=== PATIENT | female | born 1955 | race African-American/Black ===

== ENCOUNTER 2016-12-27 21:54 | Observation (INO) ==
--- NOTE | 2016-12-27 22:55 | Emergency Department Note ---
Sandra Naik Emily, am scribing for, and in the presence of, Bridgett Jovel DO 22:33. IMed Debra, DO, personally performed the services described in this documentation, ascribed by Jennifer Flores in my presence, and it is both accurate and complete . Arrival - Arrival Chief Complaint: Non-Specific Stated Complaint: sbo ED Nursing Triage Note: TRANSFER FROM [facility] WITH SMALL BOWEL OBSTRUCTION. PATIENT STATES SHE DEVELOPED N/V TODAY AND WENT IN TO BE SEEN. Mode of Arrival: Stretcher Limitations: No Limitations Source: Patient - History of Present Illness HPI Narrative: Pt is a 61 y/o female who was transferred from [facility] for further evaluation SBO. sent CT abd/pelvis report in which shows small obstruction related to a left pelvic spigelian hernia with concern for strangulation and no perforation. Her WBC was 16.3 and RBC of 5.0 at . Pt c/o abdomen pain with N /V that has been ongoing for 3 days now. Pt notes coming from family's graduation ceremony and constantly stopping on side of road with emesis. Onset (ago): day(s) Consistency: constant Severity: moderate, severe Severity scale (1-10): 9 Quality: aching, fullness Allergies/Adverse Reactions: Allergies Allergy/AdvReac Type Severity Reaction Status Date / Time codeine AdvReac Vomiting Verified 12/25/16 16:54 Home Medications: Home Medications Medication Instructions Recorded Confirmed Type Ciprofloxacin Tab [Cipro Tab] 500 mg PO BID #20 tablet 12/25/16 Rx Ondansetron Tab [Zofran Tab] 4 mg PO Q6H PRN #20 tablet 12/25/16 Rx Review of System - Review of System 12 point system: reviewed and no additional remarkable complaints except as stated - Review of System Constitutional: Absent: chills, fever Respiratory: Absent: respiratory distress Cardiovascular: Absent: chest pain Gastrointestinal: Present: abdominal pain, nausea, vomiting Genitourinary female: Absent: dysuria Musculoskeletal: Absent: arm pain, back pain, leg pain, neck pain Skin: Absent: rash Neurological: Absent: headache, confusion Medical,Surgical,& Family Hx - Medical History Cardio: History of: Hypertension Endocrine: History of: Diabetes Mellitus (NIDDM), Dyslipidemia - Social History Smoking Status: Never smoker Frequency of Alcohol Use: None Type of Drug Use: None Exam Vital Signs: Vital Signs Temperature 97.8 F 12/27/16 21:54 Pulse Rate 62 12/27/16 21:54 Respiratory Rate 14 12/27/16 21:54 Blood Pressure 135/67 12/27/16 21:54 O2 Sat by Pulse Oximetry 99 12/27/16 21:54 - General General appearance: alert, in no apparent distress - Head Head exam: Present: atraumatic, normocephalic - Eye Eye exam: Present: PERRL, EOMI - ENT ENT exam: Present: mucous membranes moist. Absent: mucous membranes dry - Neck Neck exam: Present: full ROM. Absent: tenderness - Chest Chest inspection: Present: symmetric chest wall rise. Absent: tenderness - Respiratory Respiratory exam: Present: normal lung sounds bilaterally. Absent: respiratory distress - Cardiovascular Cardiovascular exam: Present: regular rate, normal rhythm, normal heart sounds - Abdominal Exam Abdominal exam: Present: soft, tenderness (diffusely), diminished bowel sounds. Absent: distention, guarding, rebound, normal bowel sounds - Extremities Exam Extremities exam: Present: full ROM. Absent: tenderness, pedal edema - Neurological Exam Neurological exam: Present: alert, oriented X3, CN II-XII intact. Absent: motor sensory deficit - Psychiatric Psychiatric exam: Present: normal affect, normal mood - Skin Skin exam: Present: warm, dry Course Course Narrative: spoke with Dr Talbert who will take pt to the OR Disposition Clinical Impression: Spigelian hernia with bowel obstruction Case discussed with: patient Disposition: Still a Patient Condition: Stable Time of Disposition: 23:14
--- NOTE | 2016-12-27 22:58 | General Surg History&Physical ---
Assessment and Plan - Time spent with patient Time spent with patient: Less than 30 minutes (1) Spigelian hernia with bowel obstruction Status: Acute Assessment and plan: The mass is tender and at risk for bowel compromise or gangrene. I discussed emergent laparotomy with repair of the spigelian hernia. We may be able to do this locally through the left lower quadrant incision but this may require a more complex procedure. She is rather obese so it is very difficult to definitely palpate where the mass is located. The procedure and risks were outlined in detail with the patient and she wishes to proceed Current Visit: Yes History of Present Illness Chief complaint: Abdominal pain History of present illness: Ms. Ludwig is a 61 year old female With a 3 day history of left lower quadrant abdominal pain followed by abdominal distention and nausea and vomiting. The pain was intermittent but is now more constant. The pain is mostly localized to the left lower quadrant. It feels a little better if she lays still and is worse with movement. She has not had a bowel movement in several days. She had a CT scan at [facility] showing an incarcerated spigelian hernia with bowel obstruction associated with it Home Medications Medication Instructions Recorded Confirmed Type Ciprofloxacin Tab [Cipro Tab] 500 mg PO BID #20 tablet 12/25/16 Rx Ondansetron Tab [Zofran Tab] 4 mg PO Q6H PRN #20 tablet 12/25/16 Rx Allergies Allergy/AdvReac Type Severity Reaction Status Date / Time codeine AdvReac Vomiting Verified 12/25/16 16:54 Medical,Surgical,& Family Hx - Medical History Cardio: History of: Hypertension Endocrine: History of: Diabetes Mellitus (NIDDM), Dyslipidemia - Surgical History Surgical History: noncontributory - Family History Family History: noncontributory - Social History Smoking Status: Never smoker Frequency of Alcohol Use: None Type of Drug Use: None Exam - Constitutional Vitals: Period Temp Pulse Resp BP Sys/Garcia Pulse Ox Last 24 Hr 97.8 F 62 14 135/67 99 General appearance: no acute distress, over weight - Head Head exam: Present: normocephalic - Eye Eye exam: Absent: scleral icterus - ENT Mouth exam: Present: normal voice - Neck Neck exam: Present: trachea midline. Absent: tenderness - Respiratory Respiratory exam: Present: clear to auscultation bilaterally. Absent: accessory muscle use - Cardiovascular Cardiovascular exam: Present: RRR - GI/Abdominal GI/Abdominal exam: Present: distended, hypoactive bowel sounds, mass, tenderness , soft. Absent: guarding, rebound - Back Exam Back exam: Absent: CVA tenderness (L), CVA tenderness (R) - Neurological Exam Neurological exam: Present: alert, oriented X3. Absent: motor sensory deficit Speech: Present: normal - Skin Skin exam: Present: normal color - Constitutional Constitutional: Absent: chills, fever(s), weight loss - EENT Nose, mouth and throat: Absent: hoarseness - Cardiovascular Cardiovascular: Absent: chest pain at rest, chest pain with activity, dyspnea, dyspnea on exertion, syncope - Respiratory Respiratory: Absent: dyspnea, hemoptysis, dyspnea on exertion - Gastrointestinal Gastrointestinal: Present: abdominal pain, bloating, cramping, nausea, vomiting. Absent: hematemesis, hematochezia, melena, jaundice - Genitourinary Genitourinary: Absent: hematuria - Musculoskeletal Musculoskeletal: Absent: back pain - Endocrine Endocrine: Absent: polyuria Hematologic/Lymphatic: Absent: easy bleeding, easy bruising Results - Diagnostic Findings Procedure: CT Abdomen and Pelvis: report reviewed by me
[2016-12-27] MEDS ORDERED: ceFAZolin 1,000 MG VIAL ONE (23:05)
[2016-12-27] MEDS ORDERED: BUPIVACAINE MPF 0.25% /EPI 30 ML VIAL ONE (23:05)
[2016-12-27] MEDS ORDERED: FAMOTIDINE 20 MG/2 ML VIAL IV ONE (23:16)
[2016-12-27] MEDS ORDERED: FAMOTIDINE 20 MG/2 ML VIAL IV STA (23:18)
[2016-12-27] MEDS ORDERED: LIDOCAINE 2% 5 ML VIAL ONE (23:30)
[2016-12-27] MEDS ORDERED: PHENYLEPHRINE 1 MG/10 ML SYRINGE IV ONE (23:30)
[2016-12-27] MEDS ORDERED: KETOROLAC 30 MG/1 ML VIAL ONE (23:30)
[2016-12-27] MEDS ORDERED: ONDANSETRON 4 MG/2 ML VIAL ONE (23:30)
[2016-12-27] MEDS ORDERED: GLYCOPYRROLATE 0.4 MG/2 ML VIAL ONE (23:30)
[2016-12-27] MEDS ORDERED: NEOSTIGMINE 10 MG/10 ML VIAL ONE (23:30)
[2016-12-27] MEDS ORDERED: CITRIC ACID/SODIUM CITRATE 30 ML UDCUP PO ONE (23:30)
[2016-12-27] MEDS ORDERED: DEXAMETHASONE 10 MG/1 ML VIAL ONE (23:30)
[2016-12-27] MEDS ORDERED: ROCURONIUM 100 MG/10 ML VIAL IV ONE (23:30)
[2016-12-27] MEDS ORDERED: SUCCINYLCHOLINE 200 MG/10 ML VIAL ONE (23:30)
[2016-12-27] MEDS ORDERED: PROPOFOL 200 MG/20 ML VIAL IV ONE (23:30)
[2016-12-28] MEDS ORDERED: MORPHINE 2 MG/1 ML SYRINGE IV PRN (00:35)
[2016-12-28] MEDS ORDERED: GLUCAGON 1 MG VIAL IM PRN (00:35)
[2016-12-28] MEDS ORDERED: DEXTROSE 50% 25 GM/50 ML VIAL IV PRN (00:35)
[2016-12-28] MEDS ORDERED: ONDANSETRON 4 MG/2 ML VIAL IV PRN (00:35)
--- NOTE | 2016-12-28 00:35 | Operative Note ---
Date of procedure: 12/28/16 Pre-op diagnosis: Small bowel obstruction Post-op diagnosis: other (Incarcerated spigelian hernia) Procedure: Laparotomy with reduction of incarcerated spigelian hernia 2. Repair of spigelian hernia with preperitoneal polypropylene mesh Findings and technique: After informed consent was obtained the patient was brought the operating room and placed in supine position. After successful induction of general anesthesia the patient's abdomen was prepped and draped in usual sterile fashion. A small transverse incision was made over the palpable mass in the left lower quadrant. Sharp dissection was carried down to the hernia sac. Sac was opened and the bowel exposed. The bowel appeared congested but did not appear gangrenous. I could not reduce the bowel or the incarcerated fat which appeared to mostly be. Preperitoneal fat back into the abdominal cavity. After attempts to manually reduce this were unsuccessful I had to make a small lower midline incision and then was able to reduce the bowel out of the hernia sac into the abdominal cavity the bowel was inspected and was felt to be completely viable. I saw no evidence of gangrene or bowel compromise. This relieve the bowel obstruction. I then did a preperitoneal dissection from the midline over to the location of the hernia and dissected well lateral to the hernia. This created a nice space to lay flat piece of pro- envelope fold operator polypropylene mesh. This was trimmed to fit about 5 x 10 cm in size in an oval shape and this was secured in place with a couple of Prolene sutures to prevent any mesh migration. The peritoneum was then closed isolating the mesh from the abdominal cavity. The midline fascia was then closed with a running # 1 PDS suture. The fascial and muscle layers were then closed with interrupted Prolene suture at the hernia site covering the mesh and the wounds closed with skin clips. She appeared to tolerate the procedure well and she did receive perioperative IV antibiotics. Anesthesia: GETA Surgeon / Physician: Marcus Hadley III. Estimated blood loss: minimal Specimens: none sent Condition: stable Disposition: PACU Discharge Plan - Discharge Data Disposition: Still a Patient - Discharge Medications No Action Ondansetron Tab [Zofran Tab] 4 mg PO Q6H PRN #20 tablet PRN Reason: Nausea/Vomiting Ciprofloxacin Tab [Cipro Tab] 500 mg PO BID #20 tablet - Follow Up or Referral - Forms/Instructions
[2016-12-28 00:38] LABS: Apearance,Urine Slightly Hazy (Clear); Bilirubin,Urine Negative (Negative); Blood, Urine Negative (Negative); Glucose,Urine (UA) Negative (Negative); Ketones,Urine 5 mg/dL (Negative); Mucus,Urine Occasional /LPF (Occasional); Nitrite,Urine Negative (Negative); Protein,Urine Negative; RBC,Urine 1 /HPF (0-4); Urine Color Yellow (Yellow); Urine Specific Gravity 1.015 (1.001-1.035); Urine Urobilinogen < 2.0 EU/DL (0.2-1.0); WBC,Urine 1 /HPF (0-6)
--- NOTE | 2016-12-28 00:52 | Anesthesia Post-Op ---
Anesthesia Post OP - Post Ansesthetic Evaluation Patient seen in post op: Yes Resp: within normal limits CV: within normal limits Mental: within normal limits Temp: within normal limits Cbct-Mh-Divimbjmr: within normal limits Nausea and Vomiting: within normal limits Pain: within normal limits
[2016-12-28] MEDS ORDERED: SEVOFLURANE 1 UNIT/15 MINUTE INH ONE (00:53)
[2016-12-28] MEDS ORDERED: fentaNYL 100 MCG/2 ML VIAL ONE (00:54)
[2016-12-28] MEDS ORDERED: LACTATED RINGERS 2,000 ML IV ONE (00:54)
[2016-12-28] MEDS ORDERED: MIDAZOLAM 2 MG/2 ML VIAL ONE (00:54)
[2016-12-28] MEDS ORDERED: ACETAMINOPHEN 1,000 MG/100 ML VIAL IV ONE (00:54)
[2016-12-28] MEDS: SODIUM CHLORIDE 0.45% 1,000 ML IV SCH ×3 (04:33→23:02)
[2016-12-28] MEDS: ceFAZolin 2,000 MG in PREMIX 1 EACH IV SCH ×2 (08:34→16:25)
--- NOTE | 2016-12-28 09:34 | Event Note ---
She feels much better. She has not had nausea or vomiting but has not had any appetite. Her vital signs are stable. Her abdomen is benign. Her urine output is adequate. We will get her Moreno catheter out. We will get her up out of bed.
--- NOTE | 2016-12-28 10:17 | EKG Report ---
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
--- NOTE | 2016-12-28 10:30 | Hospitalist Consult Note ---
<Jossue Hammond - Last Filed: 12/28/16 10:51> Assessment and Plan (1) Diabetes mellitus, type 2 Status: Acute Assessment and plan: Accu-Chek before meals at bedtime. Sliding scale insulin ordered. Check A1c in the a.m. hold metformin. Current Visit: Yes (2) Spigelian hernia with bowel obstruction Status: Acute Assessment and plan: Patient is status post hernia repair. Surgery is following. Current Visit: Yes (3) Hypertension Status: Acute Assessment and plan: Patient's blood pressures are stable now. Once her home meds have been reconciled we can restart. Current Visit: Yes (4) Dyslipidemia Status: Acute Assessment and plan: Lipid panel ordered in the a.m. We will restart home meds. Current Visit: Yes History of Present Illness - Consult Narrative History of present illness: Mrs. Gutierrez is a 61-year-old black female patient with a history of hypertension, hyperlipidemia, and high blood pressure that presented to the ED on 527 As a referral from [facility] for further evaluation of a small bowel obstruction patient had been complaining of abdominal pain with nausea and vomiting that have been gone now for about 3 days. Patient had been traveling from a graduation and experienced several episodes of nausea and vomiting which prompted her to be evaluated. CT provided from [facility] showed an incarcerated spigelian hernia with bowel obstruction. Patient was admitted to the surgery service and had a repair of spigelian and hernia with peritoneal polypropylene mesh. Patient tolerated the surgery well. Hospitalist service has been consulted to medically manage the patient's diabetes and other medical issues. Patient was seen and examined. We will continue to follow the patient as the clinical encounter unfolds. Thank you for your consult. CC: Marcus aHdley III., - Home Medications and Allergies Home Medications: Home Medications Medication Instructions Recorded Confirmed Type Triamterene/Hctz 37.5-25 Tab 1 tablet PO DAILY 12/28/16 12/28/16 History [Maxzide 37.5-25] metFORMIN [Glucophage] 1 tablet PO BID 12/28/16 12/28/16 History Allergies/Adverse Reactions: Allergies Allergy/AdvReac Type Severity Reaction Status Date / Time codeine AdvReac Vomiting Verified 12/25/16 16:54 Medical,Surgical,& Family Hx - Medical History Cardio: History of: Hypertension Endocrine: History of: Diabetes Mellitus (NIDDM), Dyslipidemia Musculoskeletal: History of: 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 Absent: loss of vision Ears: Absent: decreased hearing, ear discharge Nose, mouth and throat: Absent: dysphagia, sore throat - Cardiovascular Cardiovascular: Absent: chest pain at rest, dyspnea, edema - Respiratory Respiratory: Present: snoring. Absent: cough - Gastrointestinal Gastrointestinal: Present: abdominal pain. Absent: nausea, vomiting - Genitourinary Genitourinary: Absent: difficulty urinating, urinary frequency, urinary hesitancy - Neurological Neurological: Absent: confusion, dizziness - Psychiatric Psychiatric: Absent: confusion, depression - Hematologic/Lymphatic Hematologic/Lymphatic: Absent: easy bruising Exam - Constitutional Vitals: Period Temp Pulse Resp BP Sys/Garcia Pulse Ox Last 24 Hr 96.2 F-98.8 F 60-80 14-20 116-174/57-92 96-100 General appearance: normal weight, over weight - Head Head exam: Present: normal inspection, normocephalic - Eye Eye exam: Present: EOMI. Absent: periorbital swelling Pupils: Present: YONATHAN - Neck Neck exam: Absent: thyromegaly - Respiratory Respiratory exam: Present: clear to auscultation bilaterally. Absent: wheezes - Cardiovascular Cardiovascular exam: Present: regular rate and rhythm - GI/Abdominal GI/Abdominal exam: Present: normal bowel sounds, tenderness, soft, other (pt has multiple incisions to be abdomen. ) - Extremities Exam Extremities exam: Present: normal capillary refill, full ROM. Absent: edema - Neurological Exam Neurological exam: Present: alert, oriented X3, normal gait - Psychiatric Psychiatric exam: Present: normal affect, normal mood - Skin Skin exam: Present: normal color, warm, dry Quality Measures - VTE Contraindication to Pharmacological VTE Prophylaxis: High Risk of Bleeding <Jessika Vasquez - Last Filed: 12/28/16 16:02> Assessment and Plan (1) TRELL (acute kidney injury) Status: Acute Assessment and plan: Creatinine 2.1 today, up from 1.4 12/25 Gentle hydration overnight Monitor closely Current Visit: Yes History of Present Illness - Consult Narrative History of present illness: Patient seen and examined independently of TYPE [employer]ODUCER Hammond, agree with history, assessment and plan as documented. 61 y/o AAF with DM and HTN admitted with incarcerated hernia with bowel obstruction. She is now s/p repair. We have been consulted for medical management. Patient's creatinine is elevated, she denies a history of kidney disease. Agree with IV fluids, will monitor closely. If no improvement, will consult nephrology tomorrow. Also starting on SSI. CC: Marcus Hadley, III., Exam - Constitutional Vitals: Period Temp Pulse Resp BP Sys/Garcia Pulse Ox Last 24 Hr 96.2 F-98.8 F 60-80 14-20 116-174/57-92 96-100 Results - Labs CBC & BMP: 12/28/16 10:57 12/28/16 10:57
[2016-12-28 11:12] LABS: Basophils % 0.1 % (0.0-0.8); Hematocrit 35.7 VOL% (35.7-47.0); Hemoglobin 11.6 GM/DL (12.0-16.0); Immature Granulocytes % 0.5 %; Immature Granulocytes Absolute 0.07 #; Lymphocytes # 1.1 10*3/uL (1.4-4.0); Lymphocytes % 8.2 % (21.3-54.2); Mean Corpuscular HGB Conc 32.5 GM/DL (32-36); Mean Corpuscular Hemoglobin 26 PG (27-34); Mean Corpuscular Volume 79.3 FL (87-102); Mean Platelet Volume 11.3 FL (9.6-12.0); Monocytes # 0.8 10*3/uL (0.11-0.8); Monocytes % 5.5 % (1.7-12.7); Neutrophils # 11.8 10*3/uL (1.4-7.4); Neutrophils % 85.7 % (38.7-73.9); Platelet Count 253 T/CUMM (130-400); Red Cell Distribution Width 15.4 % (9.3-17.3); White Blood Count 13.7 T/CUMM (4-12)
[2016-12-28 11:48] LABS: Calcium 8.5 MG/DL (8.5-10.1); Magnesium 1.6 MG/DL (1.8-2.4); Osmolality,Calculated 289.4 MOS/KG (273-304)
[2016-12-28] MEDS: INSULIN LISPRO 100 UNIT/ML SUBCUT SCH ×3 (12:15→21:06)
[2016-12-28] MEDS: IBUPROFEN 800 MG TABLET PO SCH ×2 (14:16→21:06)
[2016-12-28] MEDS: DOCUSATE SODIUM 100 MG CAPSULE PO SCH (21:06)
[2016-12-29 05:00] LABS: Basophils % 0.1 % (0.0-0.8); Eosinophils # 0.2 10*3/uL (0.0-0.87); Eosinophils % 1.2 % (0.00-10.9); Hematocrit 30.6 VOL% (35.7-47.0); Immature Granulocytes % 0.4 %; Immature Granulocytes Absolute 0.06 #; Lymphocytes # 2.2 10*3/uL (1.4-4.0); Lymphocytes % 16.1 % (21.3-54.2); Mean Corpuscular HGB Conc 32.7 GM/DL (32-36); Mean Corpuscular Hemoglobin 25 PG (27-34); Mean Corpuscular Volume 77.7 FL (87-102); Mean Platelet Volume 11.6 FL (9.6-12.0); Monocytes # 1.1 10*3/uL (0.11-0.8); Monocytes % 8.1 % (1.7-12.7); Neutrophils # 10.3 10*3/uL (1.4-7.4); Neutrophils % 74.1 % (38.7-73.9); Platelet Count 242 T/CUMM (130-400); Red Blood Count 3.94 MC/CUMM (3.8-5.5); Red Cell Distribution Width 15.1 % (9.3-17.3); White Blood Count 13.9 T/CUMM (4-12)
[2016-12-29 05:26] LABS: Free T4 (Free Thyroxine) 1.51 NG/DL (0.76-1.46); Risk Ratio 2.4; Thyroid Stimulating Hormone 0.278 uIU/ml (0.358-3.74); VLDL CHOLESTEROL 17.6 MG/DL
[2016-12-29 05:54] LABS: Magnesium 1.7 MG/DL (1.8-2.4); Potassium 3.4 MMOL/L (3.5-5.1)
--- NOTE | 2016-12-29 06:12 | Event Note ---
She feels well. She is not having significant abdominal pain. She is tolerating a diet. There is no nausea or vomiting. Wounds look good with no signs of surgical site infection. If it is okay with hospital medicine from a medical standpoint we could discharge her home with plans to follow-up in my office in the next 1-2 weeks for skin clip removal
[2016-12-29 07:10] VITALS: BP 133/64
[2016-12-29] MEDS: INSULIN LISPRO 100 UNIT/ML SUBCUT SCH ×2 (08:31→12:00)
--- NOTE | 2016-12-29 09:11 | Discharge Summary ---
Diagnosis - Discharge Diagnosis (1) Spigelian hernia with bowel obstruction Status: Acute (2) TRELL (acute kidney injury) Status: Acute (3) Hyperthyroidism Status: Acute (4) Diabetes mellitus, type 2 Status: Chronic (5) Dyslipidemia Status: Chronic (6) Hypertension Status: Chronic Discharge Plan - Discharge Data Disposition: Disch To Home/Self Care Condition at Discharge: Stable Discharge Diet: diabetic diet Activity: no lifting (>5-10lb) Hygiene: may shower (Do not soak or submerge wound. ) Driving: not until seen by doctor Contact your physician if you experience:: fever over 101, Difficulty voiding, Redness or swelling, Nausea/Vomiting, Shortness of breath, Bleeding, pain uncontrolled by pain medications Wound / Dressing Care Instructions: Keep surgical incisions clean, dry and covered. - Discharge Medications Continue metFORMIN [Glucophage] 1 tablet PO BID Triamterene/Hctz 37.5-25 Tab [Maxzide 37.5-25] 1 tablet PO DAILY - Follow Up or Referral Follow Up: Marcus Hadley III., MD [Physician] - (1-2 wks wound check) - Forms/Instructions Additional Discharge Instructions: F/u with Primary Care Physician Re: mild hyperthyroidism and elevated creatinine in 3-7 days Exam - Constitutional Vitals: Period Temp Pulse Resp BP Sys/Garcia Pulse Ox Last 24 Hr 97.0 F-97.8 F 59-80 16-20 91-133/42-66 95-99 Discharge Results Labs on day of discharge: Labs from last 24 hours 12/29/16 12/29/16 12/29/16 07:02 04:32 04:32 WBC 13.9 H RBC 3.94 Hgb 10.0 L Hct 30.6 L MCV 77.7 L MCH 25 L MCHC 32.7 RDW 15.1 Plt Count 242 MPV 11.6 Neut % (Auto) 74.1 H Lymph % (Auto) 16.1 L Dolores % (Auto) 8.1 Eos % (Auto) 1.2 Baso % (Auto) 0.1 Neut # (Auto) 10.3 H Lymph # (Auto) 2.2 Dolores # (Auto) 1.1 H Eos # (Auto) 0.2 Baso # (Auto) 0.0 Immature Gran % 0.4 Nucleated RBC % 0.0 Immature Gran # 0.06 Nucleated RBCs # 0.00 Sodium 143 Potassium 3.4 L Chloride 104 Carbon Dioxide 28 Anion Gap 14.4 BUN 29 H Creatinine 1.50 H GFR Calculation 50 BUN/Creatinine Ratio 19.00 Glucose 104 POC Glucose 96 Hemoglobin A1c Calculated Osmolality 290.0 Calcium 8.0 L Magnesium 1.7 L Triglycerides Cholesterol LDL Cholesterol VLDL Cholesterol HDL Cholesterol Heart Disease Risk Ratio Free T4 TSH 3rd Generation 12/29/16 12/29/16 12/28/16 04:32 04:32 20:31 WBC RBC Hgb Hct MCV MCH MCHC RDW Plt Count MPV Neut % (Auto) Lymph % (Auto) Dolores % (Auto) Eos % (Auto) Baso % (Auto) Neut # (Auto) Lymph # (Auto) Dolores # (Auto) Eos # (Auto) Baso # (Auto) Immature Gran % Nucleated RBC % Immature Gran # Nucleated RBCs # Sodium Potassium Chloride Carbon Dioxide Anion Gap BUN Creatinine GFR Calculation BUN/Creatinine Ratio Glucose POC Glucose 157 H Hemoglobin A1c 7.3 H Calculated Osmolality Calcium Magnesium Triglycerides 88 Cholesterol 125 LDL Cholesterol 58.0 VLDL Cholesterol 17.6 HDL Cholesterol 52 Heart Disease Risk Ratio 2.40 Free T4 1.51 H TSH 3rd Generation 0.278 L 12/28/16 12/28/16 12/28/16 16:25 11:20 10:57 WBC RBC Hgb Hct MCV MCH MCHC RDW Plt Count MPV Neut % (Auto) Lymph % (Auto) Dolores % (Auto) Eos % (Auto) Baso % (Auto) Neut # (Auto) Lymph # (Auto) Dolores # (Auto) Eos # (Auto) Baso # (Auto) Immature Gran % Nucleated RBC % Immature Gran # Nucleated RBCs # Sodium 140 Potassium 4.0 Chloride 99 Carbon Dioxide 29 Anion Gap 16.0 H BUN 29 H Creatinine 2.10 H GFR Calculation 33 BUN/Creatinine Ratio 13.00 Glucose 180 H POC Glucose 200 H 184 H Hemoglobin A1c Calculated Osmolality 289.4 Calcium 8.5 Magnesium 1.6 L Triglycerides Cholesterol LDL Cholesterol VLDL Cholesterol HDL Cholesterol Heart Disease Risk Ratio Free T4 TSH 3rd Generation 12/28/16 12/28/16 10:57 10:16 WBC 13.7 H RBC 4.50 Hgb 11.6 L Hct 35.7 MCV 79.3 L MCH 26 L MCHC 32.5 RDW 15.4 Plt Count 253 MPV 11.3 Neut % (Auto) 85.7 H Lymph % (Auto) 8.2 L Dolores % (Auto) 5.5 Eos % (Auto) 0.0 Baso % (Auto) 0.1 Neut # (Auto) 11.8 H Lymph # (Auto) 1.1 L Dolores # (Auto) 0.8 Eos # (Auto) 0.0 Baso # (Auto) 0.0 Immature Gran % 0.5 Nucleated RBC % 0.0 Immature Gran # 0.07 Nucleated RBCs # 0.00 Sodium Potassium Chloride Carbon Dioxide Anion Gap BUN Creatinine GFR Calculation BUN/Creatinine Ratio Glucose POC Glucose 175 H Hemoglobin A1c Calculated Osmolality Calcium Magnesium Triglycerides Cholesterol LDL Cholesterol VLDL Cholesterol HDL Cholesterol Heart Disease Risk Ratio Free T4 TSH 3rd Generation DS: Provider Date of admission: 12/28/16 00:35 Primary care physician: . No PCP Attending physician on admission: Marcus Hadley III., Consults: 12/28/16 00:35 Consult to Physician [CONS] Routine Comment: Management of diabetes Consulting Provider: Consult to Specialist Group: Hospitalist When should Consulting Provider be notified: In am Person Notified: Lottie Date Notified: 12/28/16 Time Notified: 09:26 Consult Notification Comment: stated one of her partners would be up to see pt. Discharging clinician: Rachael Ramirez PA-C
[2016-12-29] MEDS: DOCUSATE SODIUM 100 MG CAPSULE PO SCH (09:16)
[2016-12-29] MEDS: IBUPROFEN 800 MG TABLET PO SCH (09:16)
--- NOTE | 2016-12-29 09:32 | Hospitalist Progress Note ---
Assessment and Plan (1) TRELL (acute kidney injury) Status: Acute Assessment and plan: Creatinine down to 1.5 with gentle iv hydration Current Visit: Yes (2) Diabetes mellitus, type 2 Status: Chronic Assessment and plan: Controlled with SSI Continue metformin outpatient Current Visit: Yes Hospitalist: Subjective Interval history: No acute events overnight. Patient is doing well. She has been out of bed and ambulating. Creatinine improving with gentle overnight iv hydration. Free T4 is very mildly elevated, but her body is also in a state of stress. OK with discharge from my stand point. She will need to follow-up with her pcp in 1-2 weeks for bmp and repeat tfts. Exam - Constitutional Vitals: Period Temp Pulse Resp BP Sys/Garcia Pulse Ox Last 24 Hr 97.0 F-97.8 F 59-80 16-20 91-133/42-66 95-99 General appearance: over weight - Head Head exam: Present: normocephalic, atraumatic - Eye Eye exam: Present: EOMI Pupils: Present: YONATHAN - ENT ENT exam: Present: normal exam - Neck Neck exam: Present: normal inspection - Respiratory Respiratory exam: Present: clear to auscultation bilaterally. Absent: rhonchi, wheezes - Cardiovascular Cardiovascular exam: Present: regular rate and rhythm - GI/Abdominal GI/Abdominal exam: Present: normal bowel sounds, tenderness, soft. Absent: rebound - Extremities Exam Extremities exam: Present: normal inspection - Back Exam Back exam: Present: normal inspection - Neurological Exam Neurological exam: Present: alert, oriented X3 - Psychiatric Psychiatric exam: Present: normal affect, normal mood - Skin Skin exam: Present: warm, intact Results - Labs CBC & BMP: 12/29/16 04:32 12/29/16 04:32 Quality Measures - VTE Contraindication to Pharmacological VTE Prophylaxis: High Risk of Bleeding Specialty Discharge - Follow Up or Referrals Follow up with: Marcus Hadley III., MD [Physician] - (Please call office Thursday morning for 1-2 wks wound check appointment. Thank you)
== END 2016-12-29 12:26 | disposition home or self-care (01) ==
LOC: N.ED 21:54 → N.EDINP 21:54 → N.3E 23:29
PROVIDERS: ADMIT Surgery; ATTEND Surgery